=== PATIENT | male | born 1960 | race Caucasian/White ===

== ENCOUNTER → 2021-08-26 | Outpatient (CLI) | payer OTHER ==
--- NOTE | 2021-08-27 19:06 | CTL ---
EXAMINATION TYPE: CT Low Dose Lung DATE OF EXAM ORDERED: 08/26/2021 HISTORY: History of tobacco use Lung cancer screening CT DLP: 95.[address] CTDI: 2.6 mGy Automated exposure control for dose reduction was used. SCREENING VISIT: Lung cancer screening COMPARISON: None TECHNIQUE: Low dose computed tomography scan was performed through the chest at 1 mm thick sections a nd reconstructed images in multiple planes at 1 mm and [address] DIAGNOSTIC QUALITY: Satisfactory FINDINGS: LUNG NODULES: None. LUNGS: COPD: Severity: None Fibrosis: Severity: None Lymph nodes: None Other findings: None RIGHT PLEURAL SPACE: Effusion: None Calcification: None Thickening: None Pneumothorax: None LEFT PLEURAL SPACE: Effusion: None Calcification: None Thickening: None Pneumothorax: None HEART: Heart Size: Normal Coronary Calcification: Moderate Pericardial Effusion: Normal OTHER FINDINGS: Upper abdomen: None Bony thorax: No acute osseous pathology. Supraclavicular region: No findings. Other: Arthrosclerosis of the arterial vasculature. IMPRESSION: No clinically significant pulmonary nodules CT LUNG RAD AND CT CHEST RECOMMENDATION: Lung-Rad 1 Negative: Continue annual screening with LDCT in 12 months. S Modifier (other clinically significant findings): None
== END | disposition home or self-care (01) ==
LOC: RADCTMAIN 15:20
DX: Z12.2 Encounter for screening for malignant neoplasm of respiratory organs (principal); Z87.891 Personal history of nicotine dependence
CPT/HCPCS: 71271

== ENCOUNTER → 2022-07-10 | Outpatient (CLI) | payer OTHER ==
--- NOTE | 2022-07-10 12:42 | US ---
EXAMINATION TYPE: US abdomen limited DATE OF EXAM: 07/10/2022 COMPARISON: NONE CLINICAL HISTORY: 62-year-old male K43.9 ventral hernia w/o obstruction. Assess for hernia at location of: Umbilicus area. Technique and findings: Real-time scanning was performed by the laser engineer utilizing Valsalva and ad ditional dynamic maneuvers to assess for hernia. Scanned area of concern no evidence of hernia visua lized. IMPRESSION: The umbilical region corresponding to the site of concern was scanned. Unable to identify a discrete umbilical hernia by ultrasound.
== END | disposition home or self-care (01) ==
LOC: RADUSWWP 09:39
DX: K43.9 Ventral hernia without obstruction or gangrene (principal)
CPT/HCPCS: 76705

== ENCOUNTER → 2022-10-02 | Outpatient (CLI) | payer OTHER ==
--- NOTE | 2022-10-02 17:49 | CTL ---
EXAMINATION TYPE: CT Low Dose Lung DATE OF EXAM: 10/02/2022 4:43 PM CLINICAL INDICATION:Male, 62 years old with history of Z87.891 PERSONAL HISTORY OF NICOTINE DEPENDENC E; 1 pack a day x50yrs and counting, pt weighs 248 pounds. , history of tobacco use. COMPARISON: 08/26/2021 TECHNIQUE: Multiple axial non-contrast scans were obtained from approximately the lung apices through the upper abdomen. Coronal and sagittal reformatted images were obtained. Low dose technique was uti lized. CT DLP: 173.8 mGycm, Automated exposure control for dose reduction was used. CT Contrast: Contrast used: None Oral contrast used: None FINDINGS: ======== Lack of intravenous contrast and low dose technique limits the evaluation of the vascular and soft ti ssue structures. LUNGS: No evidence of emphysema or pulmonary fibrosis. No evidence of focal consolidation, pneumothor ax or pleural effusion. Nodules: RUL: None. RML: None. RLL: None. CRISTINO: None. LLL: None. AIRWAY: Patent and unremarkable. HEART: Size within normal limits. Atherosclerosis of the coronary arteries. MEDIASTINUM: No gross evidence of adenopathy. VASCULATURE: No aortic aneurysm. MUSCULOSKELETAL: No acute osseous abnormalities, multilevel disc degeneration changes throughout the spine. SOFT TISSUES/LYMPH NODES: Unremarkable. LOWER NECK: No significant findings. UPPER ABDOMEN: Diffuse low-attenuation to the liver parenchyma. IMPRESSION: 1. No clinically significant pulmonary nodules. 2. Hepatic steatosis. CT LUNG RAD AND CT CHEST RECOMMENDATION: Lung-Rad 1 Negative: Continue annual screening with LDCT in 12 months. S Modifier (other clinically significant findings): None Recommend smoking cessation (if current smoker), or continuation of smoking cessation (if prior smoke r). Annual screening for lung cancer with low-dose computed tomography is recommended in adults ages 55 to 77 years who have a 30 pack-year smoking history and currently smoke or have quit within the pa st 15 years. Screening should be discontinued once a person has not smoked for 15 years or develops a health problem that substantially limits life expectancy or the ability or willingness to have curat adore lung surgery. Lung rads 2021 [email or web address]
== END | disposition home or self-care (01) ==
LOC: RADCTMAIN 16:13
PROVIDERS: ATTEND Physician Assistant
DX: Z12.2 Encounter for screening for malignant neoplasm of respiratory organs (principal); K76.0 Fatty (change of) liver, not elsewhere classified; Z87.891 Personal history of nicotine dependence
CPT/HCPCS: 71271